=== PATIENT | female | born 1995 | race Two or more races ===

== ENCOUNTER 2019-04-12 19:43 | Emergency (ER) | payer SELFPAY ==
[~2019-04-12] VITALS: Ht 170.2 cm; Wt 56.2 kg
[2019-04-12 19:56] VITALS: BP 109/70
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
--- NOTE | 2019-04-12 20:16 | NUR ---
PT SIGNED WAIVER
[2019-04-12] MEDS ORDERED: KETOROLAC TROMETHAMINE INJ 30 MG/ML VIAL ONE (20:17)
[2019-04-12] MEDS ORDERED: CYCLOBENZAPRINE 10 MG TABLET ONE (20:17)
--- NOTE | 2019-04-12 20:22 | NUR ---
PT TAKEN TO RADIOLOGY VIA WHEELCHAIR
[2019-04-12] MEDS ORDERED: KETOROLAC TROMETHAMINE INJ 30 MG/ML VIAL IM ONE (20:30)
[2019-04-12] MEDS ORDERED: CYCLOBENZAPRINE 10 MG TABLET PO ONE (20:30)
--- NOTE | 2019-04-12 20:32 | NUR ---
PT RETURNED FROM RADIOLOGY VIA WHEELCHAIR. PT TOLERATED WELL.
--- NOTE | 2019-04-12 21:12 | NUR ---
Patient discharged to home in stable condition. Written and verbal after care instructions given. Patient verbalizes understanding of instruction.
== END 2019-04-12 21:14 | disposition home or self-care (01) ==
LOC: ER 19:48
DX: S16.1XXA Strain of muscle, fascia and tendon at neck level, initial encounter (principal); V49.59XA Passenger injured in collision with other motor vehicles in traffic accident, initial encounter; Y93.89 Activity, other specified; Y92.413 State road as the place of occurrence of the external cause; Y99.8 Other external cause status
CPT/HCPCS: 72125; 99284; J1885